=== PATIENT | female | born 1995 | race American Indian/Alaskan Native ===

== ENCOUNTER 2019-03-11 21:37 | Emergency (ER) | payer SELFPAY ==
--- NOTE | 2019-03-11 22:43 | Event Note ---
ED Screening Note Date of service: 03/11/19 Time: 22:38 ED Screening Note: C/o left ankle pain and swelling x 1 week after injury This initial assessment/diagnostic orders/clinical plan/treatment(s) is/are subject to change based on patients health status, clinical progression and re-assessment by fellow clinical providers in the ED. Further treatment and workup at subsequent clinical providers discretion. Patient/guardian urged not to elope from the ED as their condition may be serious if not clinically assessed and managed. Initial orders include: Xr
--- NOTE | 2019-03-11 23:11 | XRay Report ---
Left ankle 3 views INDICATION: Left ankle pain following injury IMPRESSION: Moderate swelling of the left ankle. No underlying fracture or subluxation identified. Signer Name: Wil Lozada MD Signed: 03/11/2019 11:06 PM Workstation Name: [id number]
--- NOTE | 2019-03-12 01:13 | Emergency Department Report ---
ED Lower Extremity HPI - General Chief Complaint: Extremity Injury, Lower Stated Complaint: POSS SPRAINED LT ANKLE Time Seen by Provider: 03/12/19 00:57 Source: patient Mode of arrival: Ambulatory Limitations: No Limitations - History of Present Illness Initial Comments: Patient is a 24-year-old female that presents emergency room with complaints of left ankle pain. Patient states she twisted her ankle 2 weeks ago. She complains of pain and swelling. Patient states the swelling and pain are intermittent. Patient states it is better when she rests and worse when she is walking on it. Patient states she's been taking ibuprofen with good relief. MD Complaint: ankle injury -: Sudden Injury: Ankle: Left Type of Injury: inversion Place: home Severity: severe Severity scale (0 -10): 10 Improves With: rest Worsens With: weight bearing, movement, palpation Context: walking Associated Symptoms: swelling, able to partially bear weight, ambulatory. denies: numbness, tingling Treatments Prior to Arrival: cold therapy, NSAIDS - Related Data Previous Rx's Medication Instructions Recorded Last Taken Type Naproxen [Naprosyn] 500 mg PO BID PRN #15 tablet 03/12/19 Unknown Rx Allergies Allergy/AdvReac Type Severity Reaction Status Date / Time adhesive tape Allergy Unknown Verified 03/11/19 22:31 morphine Allergy Unknown Verified 03/11/19 22:31 Penicillins Allergy Unknown Verified 03/11/19 22:31 ibuprofen AdvReac Unknown Verified 03/11/19 22:31 ED Review of Systems ROS: Stated complaint: POSS SPRAINED LT ANKLE Other details as noted in HPI Constitutional: denies: chills, fever Eyes: denies: eye pain, eye discharge, vision change ENT: denies: ear pain, throat pain Respiratory: denies: cough, shortness of breath, wheezing Cardiovascular: denies: chest pain, palpitations Endocrine: no symptoms reported Gastrointestinal: denies: abdominal pain, nausea, diarrhea Genitourinary: denies: urgency, dysuria, discharge Musculoskeletal: denies: back pain, joint swelling, arthralgia Skin: denies: rash, lesions Neurological: denies: headache, weakness, paresthesias Psychiatric: denies: anxiety, depression Hematological/Lymphatic: denies: easy bleeding, easy bruising ED Past Medical Hx - Past Medical History Previous Medical History?: No - Surgical History Past Surgical History?: Yes Additional Surgical History: tonsillectomy - Family History Family history: no significant - Social History Smoking Status: Current Every Day Smoker Substance Use Type: Alcohol, Marijuana - Medications Home Medications: Home Medications Medication Instructions Recorded Confirmed Last Taken Type Naproxen [Naprosyn] 500 mg PO BID PRN #15 tablet 03/12/19 Unknown Rx ED Physical Exam - General Limitations: No Limitations General appearance: alert, in no apparent distress - Head Head exam: Present: atraumatic, normocephalic - Eye Eye exam: Present: normal appearance - ENT ENT exam: Present: mucous membranes moist - Neck Neck exam: Present: normal inspection - Respiratory Respiratory exam: Present: normal lung sounds bilaterally. Absent: respiratory distress - Cardiovascular Cardiovascular Exam: Present: regular rate, normal rhythm. Absent: systolic murmur, diastolic murmur, rubs, gallop - GI/Abdominal GI/Abdominal exam: Present: soft, normal bowel sounds - Extremities Exam Extremities exam: Present: normal inspection, full ROM, tenderness (medial lateral left ankle tenderness ) - Back Exam Back exam: Present: normal inspection - Neurological Exam Neurological exam: Present: alert, oriented X3 - Psychiatric Psychiatric exam: Present: normal affect, normal mood - Skin Skin exam: Present: warm, dry, intact, normal color. Absent: rash ED Course Vital Signs 03/11/19 21:48 Temperature 97.8 F Pulse Rate 82 Respiratory 18 Rate Blood Pressure 142/68 O2 Sat by Pulse 98 Oximetry - Reevaluation(s) Reevaluation #1: I discussed all results with patient. I discussed plan of care with patient. Patient agrees with plan of care. Patient is stable for discharge. Patient will be discharged home. Patient given discharge instructions. Patient voiced understanding of discharge instructions. 03/12/19 01:21 ED Lower Extremity MDM - Radiology Data Radiology results: report reviewed Left ankle 3 views INDICATION: Left ankle pain following injury IMPRESSION: Moderate swelling of the left ankle. No underlying fracture or subluxation identified. - Medical Decision Making Patient is a 24-year-old female with ankle pain 2 weeks. Patient also complains of swelling. Patient's x-ray negative. Patient stable for discharge. Patient's clinical findings consistent with an ankle sprain. Patient discharged home and to follow-up with orthopedist. Patient will most likely require an MRI with orthopedist - Differential Diagnosis sprain strain fracture Critical care attestation.: If time is entered above; I have spent that time in minutes in the direct care of this critically ill patient, excluding procedure time. ED Disposition Clinical Impression: Left ankle pain Qualifiers: Chronicity: acute Qualified Code(s): M25.572 - Pain in left ankle and joints of left foot Ankle sprain Qualifiers: Encounter type: initial encounter Involved ligament of ankle: unspecified ligament Laterality: left Qualified Code(s): S93.402A - Sprain of unspecified l igament of left ankle, initial encounter Disposition: TO HOME OR SELFCARE Is pt being admited?: No Does the pt Need Aspirin: No Condition: Stable Instructions: Ankle Sprain (ED) Additional Instructions: Patient to follow-up with primary care in 2-3 days. Patient to follow-up with orthopedist in 2-3 days. Patient to return to ER if condition worsens. Patient to rest. Patient to increase water. Patient to take meds as directed. Patie nt's take Tylenol or Naprosyn when necessary for pain. Prescriptions: Naproxen [Naprosyn] 500 mg PO BID PRN #15 tablet PRN Reason: pain Referrals: MATTHEW FIELDHAWLEY MD [facility] [Primary Care Provider] - 2-3 Days JULIANNE BELLAMY MD [Staff Physician] - 2-3 Days Time of Disposition: 01:24
[2019-03-12 02:01] VITALS: BP 138/83
== END 2019-03-12 01:36 | disposition home or self-care (01) ==
LOC: ED 21:37
DX: S93.402A Sprain of unspecified ligament of left ankle, initial encounter (principal); F17.200 Nicotine dependence, unspecified, uncomplicated; F12.10 Cannabis abuse, uncomplicated; Z88.0 Allergy status to penicillin; Z88.6 Allergy status to analgesic agent; Z91.09 Other allergy status, other than to drugs and biological substances; Z90.89 Acquired absence of other organs; X58.XXXA Exposure to other specified factors, initial encounter; Y93.89 Activity, other specified; Y92.89 Other specified places as the place of occurrence of the external cause; Y99.8 Other external cause status